=== PATIENT | female | born 1950 | race Caucasian/White ===

== ENCOUNTER 2017-07-16 18:06 | Emergency (ER) | payer SELFPAY ==
--- NOTE | 2017-07-16 18:16 | PDOC ---
Rapid Medical Evaluation Time Seen by Provider: 07/16/17 18:11 Medical Evaluation: 07/16/17 18:11 The patient presents with a chief complaint of: L upper back pain, unable to move after reaching down yesterday. States she is unable to get up or move without pain. Denies bladder/bowel incontinence, saddle anesthesia. 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 I have performed a brief in-person evaluation of this patient; Pertinent physical exam findings: ambulatory, in no respiratory distress. TTP L mid back with palpable knot. I have ordered the following: Nothing The patient will proceed to the ED for further evaluation. \
[2017-07-16 18:17] VITALS: BP 130/65; PULSE 82; TEMP 98.2; BMI 25.2
--- NOTE | 2017-07-16 20:26 | PDOC ---
History of Present Illness - General Chief Complaint: Back Pain Stated Complaint: BACK PAIN Time Seen by Provider: 07/16/17 18:11 History Source: Patient Exam Limitations: No Limitations - History of Present Illness Initial Comments: CHIEF COMPLAINT: 67 y/o afebrile female with PMH HTN, HLD, NIDDM c/o left upper back pain x 3 days. HISTORY OF PRESENT ILLNESS: The patient states she does lift her 2 y/o grandson a lot but is not sure what caused her pain to start 3 days ago. She states it's worse with movement and has taken 1 diclofenac for it. She denies f /c, ENGLISH, neck pain, cough, n/v/d, CP, SOB, abd pain, hematuria, dysuria. She does have slipped disc at L5 but her low back is not hurting. Vital signs on arrival are within normal limits. REVIEW OF SYSTEMS: GENERAL/CONSTITUTIONAL: No fever/chills. No weakness. No weight change. HEAD, EYES, EARS, NOSE AND THROAT: No change in vision. No ear pain or discharge. No sore throat. CARDIOVASCULAR: No chest pain or shortness of breath. RESPIRATORY: No cough, wheezing, or hemoptysis. MUSCULOSKELETAL: +left upper back pain. No joint or muscle swelling or pain. No neck pain. NEUROLOGIC: No headache, vertigo, loss of consciousness, or loss of sensation. PHYSICAL EXAM: GENERAL: The patient is awake, alert, and fully oriented, in no acute distress. She is well appearing and pleasant. HEAD: Normal with no signs of trauma. ENT: Pupils equal, round and reactive to light, extraocular movements intact, sclera anicteric, conjunctiva clear. Neck supple. LUNGS: Clear to auscultation bilaterally. Normal excursion. No respiratory distress or use of accessory muscles. CV: RRR, S1/S2, no MRG. Cap refill < 2 sec. ABDOMEN: Soft, non-distended, non-tender even to deep palpation, no hepatomegaly or splenomegaly, no masses. BACK: No midline thoracic spine TTP or step offs. Reproducible pain with palpation to left intercostal muscles at level of T6-T7 with palpable knot. EXTREMITIES: Normal range of motion, no edema. NEUROLOGICAL: Normal speech, normal gait. CN II-XII grossly intact. SKIN: Warm, dry, normal turgor, no rashes or lesions noted. Past History - Past Medical History Allergies/Adverse Reactions: Allergies Allergy/AdvReac Type Severity Reaction Status Date / Time No Known Allergies Allergy Verified 07/16/17 18:11 Home Medications: Ambulatory Orders Metformin HCl 850 mg PO ASDIR 07/16/17 COPD: No Diabetes: Yes HTN: Yes Hypercholesterolemia: Yes - Suicide/Smoking/Psychosocial Hx Smoking History: Former smoker Have you smoked in the past 12 months: Yes Information on smoking cessation initiated: No *Physical Exam - Vital Signs Last Vital Signs Temp Pulse Resp BP Pulse Ox 98.2 F 82 19 130/65 98 07/16/17 18:11 07/16/17 18:11 07/16/17 18:11 07/16/17 18:11 07/16/17 18:11 Medical Decision Making - Medical Decision Making A/P: 67 y/o female with upper back strain with palpable knot in left upper back. Suggested 600mg of over the counter ibuprofen every 6 hours with food, heating pad, stretching, massage and avoiding heavy lifting until symptoms improve. Pt instructed to f/u with her doctor and return to the ER with any worsening or concerning symptoms. The patient verbalizes understanding of all instructions, has no further questions and is awaiting discharge. *DC/Admit/Observation/Transfer Diagnosis at time of Disposition: Upper back strain Qualifiers: Encounter type: initial encounter Qualified Code(s): S29.012A - Strain of muscle and tendon of back wall of thorax, initial encounter - Discharge Dispostion Disposition: HOME Condition at time of disposition: Good - Referrals - Patient Instructions Printed Discharge Instructions: DI for Back Strain or Sprain Additional Instructions: Discharge Instructions: -You have a back strain -Please take 600mg of over the counter Ibuprofen every 6 hours with food for pain -Use a heating pad to the affected area and massage the affected area to help with pain -Avoid heavy lifting until feeling better -Follow up with your doctor within 1 week -Return to the ER with any worsening or concerning symptoms. Instrucciones de descarga: -Tienes dee dee tensin en la espalda - [place] 600 mg de Ibuprofeno sin receta cada 6 horas con alimentos para el dolor -Utilice dee dee almohadilla trmica en el gladys afectada y masajee el gladys afectada para ayudar con el dolor -Evite levantar objetos pesados hasta sentirse mejor -Siga con harrison doctor dentro de 1 semana -Volver a la je de emergencias con cualquier empeoramiento o sntomas. Print Language: ESTONIAN - Post Discharge Activity
== END 2017-07-16 20:36 | disposition home or self-care (01) ==
LOC: JERFT 18:06
DX: S29.012A Strain of muscle and tendon of back wall of thorax, initial encounter (principal); X50.0XXA Overexertion from strenuous movement or load, initial encounter; X50.9XXA Other and unspecified overexertion or strenuous movements or postures, initial encounter; Y93.89 Activity, other specified; Y92.89 Other specified places as the place of occurrence of the external cause; Y99.8 Other external cause status; I10 Essential (primary) hypertension; E11.9 Type 2 diabetes mellitus without complications; E78.00 Pure hypercholesterolemia, unspecified; Z79.84 Long term (current) use of oral hypoglycemic drugs
CPT/HCPCS: 99281-25

== ENCOUNTER 2017-11-09 09:20 | Emergency (ER) | payer OTHER ==
[2017-11-09 09:29] VITALS: BP 127/76; PULSE 70; TEMP 98.3; BMI 25.4
--- NOTE | 2017-11-09 10:04 | PDOC ---
History of Present Illness - General Chief Complaint: Injury Stated Complaint: KNEE PAIN Time Seen by Provider: 11/09/17 09:57 - History of Present Illness Initial Comments: 11/09/17 10:00 CHIEF COMPLAINT: foot injury HISTORY OF PRESENT ILLNESS: 67 yo F presents to ED with lac to left foot s/p injury. Patient reports that a glass fell from a cupboard onto her foot and she was "bleeding all over the kitchen" and had a lot of pain when she walked. Patient states she last had a tetanus shot 5 years ago. PAST MEDICAL HISTORY: Denies past medical history FAMILY HISTORY: Denies SOCIAL HISTORY: Denies tobacco, alcohol, illicit drug use. SURGICAL HISTORY: Denies ALLERGIES: No known drug allergies REVIEW OF SYSTEMS General/Constitutional: Denies fever or chills. HEENT: Denies change in vision. Denies ear pain or discharge. Denies sore throat. Cardiovascular: Denies chest pain or shortness of breath. Respiratory: Denies cough, wheezing, or hemoptysis. Musculoskeletal: Pain to left foot when walking. Skin: Cut to left foot. Denies rash or easy bruising. Neurologic: Denies headache, vertigo, loss of consciousness, or loss of sensation. PHYSICAL EXAM General Appearance: Well-appearing, appropriately dressed. No apparent distress , no intoxication. HEENT: EOMI, PERRLA, normal ENT inspection, normal voice, TMs normal, pharynx normal. No conjunctival pallor. No photophobia, scleral icterus. Respiratory/Chest: Lungs CTAB. Cardiovascular: RRR. S1, S2. Vascular Pulses: Dorsalis-Pedis (R): 2+, Dorsalis-Pedis (L): 2+ Gastrointestinal/Abdominal: Normal bowel sounds. Abdomen soft, non-distended. No tenderness or rebound tenderness. No organomegaly, pulsatile mass, guarding , hernia, hepatomegaly, splenomegaly. Musculoskeletal/Extremities: Normal inspection. FROM of all extremities, normal capillary refill. Pelvis Stable. No CVA tenderness. No tenderness to extremities, pedal edema, swelling, erythema or deformity. Integumentary: 1 cm laceration to dorsal aspect of left foot at base of 2nd metatarsal with minimal surrounding swelling. Neurovascularly intact. Appropriate color, dry, warm. No cyanosis, erythema, jaundice or rash Neurologic: wool grader II-XII intact. Fully oriented, alert. Appropriate mood/affect. Motor strength 5/5. No appreciable EOM palsy, facial droop or sensory deficit. Past History - Past Medical History Allergies/Adverse Reactions: Allergies Allergy/AdvReac Type Severity Reaction Status Date / Time No Known Allergies Allergy Verified 11/09/17 09:26 Home Medications: Ambulatory Orders Metformin HCl 850 mg PO ASDIR 07/16/17 COPD: No Diabetes: Yes HTN: Yes Hypercholesterolemia: Yes - Immunization History Immunization Up to Date: Yes - Suicide/Smoking/Psychosocial Hx Smoking History: Never smoked Have you smoked in the past 12 months: Yes Information on smoking cessation initiated: No Hx Alcohol Use: No Drug/Substance Use Hx: No *Physical Exam - Vital Signs Last Vital Signs Temp Pulse Resp BP Pulse Ox 98.3 F 70 17 127/76 100 11/09/17 09:27 11/09/17 09:27 11/09/17 09:27 11/09/17 09:27 11/09/17 09:27 ED Treatment Course - RADIOLOGY Radiology Studies Ordered: Category Date Time Status FOOT-LEFT [RAD] Stat Radiology 11/09/17 09:58 Ordered Medical Decision Making - Medical Decision Making 11/09/17 10:04 67 yo F presents to ED with lac to left foot s/p injury. -x-ray, r/o foreign body. 11/09/17 10:32 x-ray neg for foreign body or fracture. lac repair performed by MD Cabrera (see procedure note). *DC/Admit/Observation/Transfer Diagnosis at time of Disposition: Laceration - Discharge Dispostion Disposition: HOME Condition at time of disposition: Stable Decision to Admit order: No - Referrals - Patient Instructions Printed Discharge Instructions: DI for Laceration Repair Additional Instructions: As discussed, please keep area of laceration clean and dry for the next 24-48 hours. Afterwards you may wash with mild soap and water. Return to fast track or your primary care doctor for suture removal in 10-14 days. If you experience any redness, swelling, streaking, warmth, to the site of the cut, or develop fever, nausea, vomiting, or diarrhea, please return to the ER. Mobile se discuti, mantenga el gladys de laceracin limpia y seca venkatesh las prximas 24-48 horas. Luego puede lavarse con agua y jabn suave. Regrese a la va rpida o a harrison mdico de atencin primaria para la extraccin de la sutura en 10-14 miramontes. Si experimenta enrojecimiento, hinchazn, vetas, calor en el lugar del susana o desarrolla fiebre, nuseas, vmitos o diarrea, regrese a la je de emergencias. Print Language: LATVIAN - Post Discharge Activity
== END 2017-11-09 11:20 | disposition home or self-care (01) ==
LOC: JERFT 09:20
PROC: 0HQNXZZ Repair Left Foot Skin, External Approach (ICD-10-PCS; principal; 2017-11-09)
DX: S91.312A Laceration without foreign body, left foot, initial encounter (principal); W25.XXXA Contact with sharp glass, initial encounter; Y93.89 Activity, other specified; Y92.018 Other place in single-family (private) house as the place of occurrence of the external cause; Y99.8 Other external cause status; I10 Essential (primary) hypertension; E78.00 Pure hypercholesterolemia, unspecified; E11.9 Type 2 diabetes mellitus without complications; Z79.4 Long term (current) use of insulin
CPT/HCPCS: 12001; 73630-TC-LT; 99282-25